=== PATIENT | female | born 1990 | race Caucasian/White ===

== ENCOUNTER 2017-06-04 11:17 | Emergency (ER) | payer MEDICAID ==
[2017-06-04 11:29] VITALS: BP 139/99
--- NOTE | 2017-06-04 11:51 | UC ---
Abdominal Pain Female HPI - HPI Summary HPI Summary: 24 WEEK PRESENTS WITH SEVERE RIGHT FLANK PAIN. SAW CLINICAL NUTRITIONIST YESTERDAY FOR ROUTINE VISIT AND C/O SUPRAPUBIC PRESSURE. WAS DX WITH UTI AND TX WITH MACROBID. THIS MORNING DEVELOPED SEVERE PAIN. NO FEVER OR NAUSEA. FEELS SIMILAR TO KIDNEY STONES SHE HAD IN THE PAST. STILL HAS URINARY FREQUENCY. NO DYSURIA. PT IN TEARS. NO CONTRACTIONS. NO BLEEDING. NO LOSS OF FLUID. - History of Current Complaint Chief Complaint: UCGU Stated Complaint: WITH BACK PAIN Time Seen by Provider: 06/04/17 11:35 Hx Obtained From: Patient Hx Last Menstrual Period: NOW Onset/Duration: Sudden Onset, Lasting Hours Timing: Constant Severity Initially: Moderate Severity Currently: Severe Pain Intensity: 10 Pain Scale Used: 0-10 Numeric Location: Other - LOWER ABDOMEN Radiates: Yes Radiates to: Flank - RIGHT Character: Sharp Aggravating Factor(s): Nothing Alleviating Factor(s): Nothing Associated Signs and Symptoms: Positive: Back Pain, Urinary Symptoms Allergies/Adverse Reactions: Allergies Allergy/AdvReac Type Severity Reaction Status Date / Time No Known Allergies Allergy Verified 12/15/16 08:46 Home Medications: Home Medications Acetaminophen [Tylenol] 650 mg PO Q6HR PRN 06/04/17 [History Confirmed 06/04/17] Nitrofurantoin Monohyd Macro [Macrobid] 100 mg PO BID 06/04/17 [History Confirmed 06/04/17] PMH/Surg Hx/FS Hx/Imm Hx GI/ History: Kidney Stones - LAST CASE AGE 16 - Surgical History Surgical History: Yes Surgery Procedure, Year, and Place: DENTAL SURGERY - Family History Family History: Reports that her sister had appendicitis but denies any other significant FHx of GI problems. - Social History Alcohol Use: None Substance Use Type: None Smoking Status (MU): Never Smoked Tobacco Review of Systems Constitutional: Negative Respiratory: Negative Cardiovascular: Negative Gastrointestinal: Abdominal Pain Genitourinary: Frequency All Other Systems Reviewed And Are Negative: Yes Physical Exam Triage Information Reviewed: Yes Appearance: Well-Nourished, Pain Distress - SEVERE Vital Signs: Initial Vital Signs Temp 98.8 F 06/04/17 11:24 Pulse 102 06/04/17 11:24 Resp 20 06/04/17 11:24 BP 139/99 06/04/17 11:24 Pulse Ox 99 06/04/17 11:24 Vital Signs Reviewed: Yes Eyes: Positive: Conjunctiva Clear ENT: Positive: Hearing grossly normal Neck: Positive: Supple Respiratory: Positive: No respiratory distress, No accessory muscle use Cardiovascular: Positive: Tachycardia Abdomen Description: Positive: Soft, CVA Tenderness (R), Other: - GRAVID. Negative: CVA Tenderness (L) Musculoskeletal: Positive: No Edema Neurological: Positive: Alert Psychological: Positive: Age Appropriate Behavior Skin: Negative: rashes Abd Pain Female Course/Dx - Course Course Of Treatment: TO [facility] BY PRIVATE CAR - Differential Dx/Diagnosis Provider Diagnoses: RIGHT FLANK PAIN Discharge - Discharge Plan Condition: Stable Disposition: OTHER Discharge Disposition Comment: TO [facility] BY PRIVATE CAR Patient Education Materials: Flank Pain (ED) Referrals: [facility] [Provider Group] Additional Instructions: GO DIRECTLY TO [facility] FROM HERE FOR FURTHER EVALUATION.
== END 2017-06-04 11:47 ==
LOC: UCEAST 11:17
DX: O26.892 Other specified pregnancy related conditions, second trimester (principal); Z3A.24 24 weeks gestation of pregnancy; R10.9 Unspecified abdominal pain
CPT/HCPCS: 99211; G0463

== ENCOUNTER 2017-06-04 12:23 | Emergency (ER) | payer MEDICAID ==
[2017-06-04] MEDS ORDERED: Morphine INJ* 4 MG/ML 1 ML CARPUJECT IV ONE ×2 (14:09→18:11)
[2017-06-04 14:18] LABS: Hematocrit 36 % (35-47); Hemoglobin 12.2 g/dl (12.0-16.0); Mean Corpuscular HGB Conc 34 g/dl (31-36); Mean Corpuscular Hemoglobin 30 pg (27-31); Mean Corpuscular Volume 89 fL (80-97); Mean Platelet Volume 9 um3 (7.4-10.4); Red Blood Count 4.09 10^6/ul (4.0-5.4); Red Cell Distribution Width 14 % (10.5-15); White Blood Count 11.7 10^3/ul (3.5-10.8)
[2017-06-04] MEDS ORDERED: NS 0.9% 1000 ML* 1,000 ML BOLUS SCH (14:30)
[2017-06-04 14:33] LABS: Albumin 3.6 g/dL (3.2-5.2); BUN/Creatinine Ratio 16.4 (8-20); Calcium 9.2 mg/dL (8.6-10.3); EGFR African American 136.8 (>60); EGFR Non-African American 106.4 (>60); Globulin 3.6 g/dL (2-4); Potassium 3.9 mmol/L (3.5-5.0); Total Bilirubin 0.3 mg/dL (0.2-1.0); Total Protein 7.2 g/dL (6.4-8.9)
--- NOTE | 2017-06-04 15:31 | RAD ---
HISTORY: , pain, UTI, hasn't felt motion. The gestational age by outside ultrasound is: 24 weeks, 5 days COMPARISONS: None available at the time of dictation. TECHNIQUE: Multiple transverse and longitudinal ultrasound images were obtained of the gravid uterus using Grayscale, color Doppler, and M-mode Doppler imaging. FINDINGS: /PLACENTAL EVALUATION: Number of fetuses: 1 Presentation: Cephalic cardiac activity: 146 bpm Gross motion: Observed Placenta position: Anterior Amniotic fluid volume: Normal BIOMETRY: Biparietal diameter: 6.6 cm 26 weeks, 4 days Head circumference: 23.8 cm 25 weeks, 6 days Abdominal circumference: 20 cm 24 weeks, 5 days Femur length: 4.7 cm 25 weeks, 4 days HC/AC: 1.19 Estimated weight: 780 grams, +/- 114 grams GESTATIONAL AGE: The composite gestational age is: 25 weeks, 5 days. The MARK is: September 12, 2017. This is concordant with the age by previous ultrasound. ANATOMY: cranium: Not evaluated ventricles: Not evaluated choroid plexus: Not evaluated cerebellum: Not evaluated posterior fossa: Not evaluated face/orbits/lips: Not evaluated spine: Not evaluated heart: Normal 4 chamber diaphragm: Not evaluated stomach: Within normal limits kidneys: Within normal limits bladder: Within normal limits cord: Not evaluated CERVIX: The cervix is long and closed, without funneling.. The cervix measures 3.7 cm. OTHER: None IMPRESSION: SINGLE LIVE INTRAUTERINE GESTATION AT 25 WEEKS AND 5 DAYS BY COMPOSITE GESTATIONAL AGE
--- NOTE | 2017-06-04 15:31 | RAD ---
Indication: RIGHT flank pain. History of kidney stones. Comparison: No relevant prior exams available on the [facility] PACS for comparison. Technique: Ultrasound of the RIGHT kidney. Report: 12.0 x 5.7 x 5.9 cm RIGHT kidney. Normal renal cortical echogenicity. Mild LV caliectasis. No conspicuous stones. Incidental 1.1 cm hyperechoic subcapsular lesion at the interface of the RIGHT kidney and RIGHT posterior hepatic segment which may represent a benign renal angiomyolipoma or benign intrahepatic hemangioma. Negative for perinephric fluid. Limited images of the urinary bladder documented bilateral ureteral jets. IMPRESSION: 1. Mild RIGHT hydronephrosis. RIGHT ureteral jet documented at the urinary bladder grossly symmetric with the LEFT ureteral jet. 2. No visualized urolithiasis. 3. Incidental 1.1 cm hyperechoic subcapsular lesion at the interface of the RIGHT kidney and RIGHT posterior hepatic segment which may represent a benign renal angiomyolipoma or benign intrahepatic hemangioma. Low suspicion finding based on small size.
[2017-06-04 15:42] LABS: Urine Bacteria Absent (Absent); Urine Bilirubin Negative (Negative); Urine Glucose Negative (Negative); Urine Nitrite Negative (Negative)
[2017-06-04 18:54] VITALS: BP 148/78
--- NOTE | 2017-06-04 22:40 | ED ---
Bernard Campbell Tiffany, scribed for Prema Phillips MD on 06/04/17 at 1754 . - HPI Summary HPI Summary: This patient is a 26 year old F referred from [facility] to [facility] accompanied by her sister and her baby's father with a chief complaint of lower back pain since this morning. The patient rates the pain 10/10 in severity. Symptoms aggravated by nothing. Symptoms alleviated by nothing. Patient denies nausea, vomiting, and bloody urine. The patient is 24 weeks . She was diagnosed with a UTI, for which she is taking medication. The patient is tearful. The patient states that she did not feel her baby move. Her department of mathematics chair, Vanessa Edward, recommended that patient present to ER to get an ultrasound. - History of Current Complaint Chief Complaint: EDOBProblems Stated Complaint: 24WKS PREG/KIDNEY PAIN Time Seen by Provider: 06/04/17 13:54 Hx Obtained From: Patient, Medical Records - [facility] Chief Complaint: Concern for Embryonic Dem Onset/Duration: Still Present Timing: Constant Severity: Severe Current Severity: Severe Pain Intensity: 10 Location of Pain: Other: - right flank pain Character: Sharp Aggravating Factors: Nothing Alleviating Factors: Nothing Associated Signs and Symptoms: Positive: Negative - nausea, vomiting, and bloody urine - Assessment Hx Now: Yes - Allergies/Home Medications Allergies/Adverse Reactions: Allergies Allergy/AdvReac Type Severity Reaction Status Date / Time No Known Allergies Allergy Verified 12/15/16 08:46 PMH/Surg Hx/FS Hx/Imm Hx Previously Healthy: No Endocrine/Hematology History: Denies: Hx Diabetes Cardiovascular History: Denies: Hx Hypertension, Hx Pacemaker/ICD GI History: Reports: Other GI Disorders - UTI, no hx kidney stones Denies: Hx Crohn's Disease History: Denies: Hx Renal Disease Sensory History: Denies: Hx Hearing Aid Psychiatric History: Denies: Hx Panic Disorder - Surgical History Surgery Procedure, Year, and Place: DENTAL SURGERY Infectious Disease History: No Infectious Disease History: Denies: Traveled Outside the [place] in Last 30 Days - Family History Known Family History: Positive: Other - Reports that her sister had appendicitis - Social History Lives: With Family Alcohol Use: None Hx Substance Use: No Substance Use Type: Reports: None Hx Tobacco Use: No Smoking Status (MU): Never Smoked Tobacco Review of Systems Constitutional: Negative Cardiovascular: Negative Respiratory: Negative Negative: Vomiting, Nausea Positive: other - NEGATIVE: bloody urine Positive: Other - right flank pain, bilat low back pain Skin: Negative Neurological: Negative Psychological: Normal All Other Systems Reviewed And Are Negative: Yes Physical Exam - Physical Exam Triage Information Reviewed: Yes Vital Signs Reviewed: Yes Appearance: Positive: Well-Nourished. Negative: Well-Appearing - Uncomfortable , Pain Distress Skin: Positive: Warm, Skin Color Reflects Adequate Perfusion Head/Face: Positive: Normal Head/Face Inspection Eyes: Positive: EOMI, Conjunctiva Clear ENT: Positive: Normal ENT inspection Neck: Positive: Supple Respiratory/Lung Sounds: Positive: Clear to Auscultation, Breath Sounds Present - Normal, Other - No respiratory distress Cardiovascular: Positive: Normal - Brisk capillary refill, RRR, Pulses are Symmetrical in both Upper and Lower Extremities. Negative: Murmur Abdomen Description: Positive: Nontender, No Organomegaly, Soft, CVA Tenderness (R), Other: - Fundus palpable 2cm above umbilicus Bowel Sounds: Positive: Present Musculoskeletal: Positive: Normal, Strength/ROM Intact Neurological: Positive: Sensory/Motor Intact, Alert, Oriented to Person Place, Time, Facial Symmetry, Speech Normal Psychiatric: Positive: Other - Tearful Diagnostics - Vital Signs Vital Signs Temp Pulse Resp BP Pulse Ox 06/04/17 12:39 97.3 F 90 17 149/97 98 - Laboratory Lab Results: Lab Results 06/04/17 06/04/17 06/04/17 Range/Units 14:05 14:05 14:05 WBC 11.7 H (3.5-10.8) 10^3/ul RBC 4.09 (4.0-5.4) 10^6/ul Hgb 12.2 (12.0-16.0) g/dl Hct 36 (35-47) % MCV 89 (80-97) fL MCH 30 (27-31) pg MCHC 34 (31-36) g/dl RDW 14 (10.5-15) % Plt Count 219 (150-450) 10^3/ul MPV 9 (7.4-10.4) um3 Neut % (Auto) 82.1 (38-83) % Lymph % (Auto) 11.3 L (25-47) % [place] % (Auto) 5.9 (1-9) % Eos % (Auto) 0.3 (0-6) % Baso % (Auto) 0.4 (0-2) % Absolute Neuts (auto) 9.6 H (1.5-7.7) 10^3/ul Absolute Lymphs (auto) 1.3 (1.0-4.8) 10^3/ul Absolute Monos (auto) 0.7 (0-0.8) 10^3/ul Absolute Eos (auto) 0 (0-0.6) 10^3/ul Absolute Basos (auto) 0 (0-0.2) 10^3/ul Absolute Nucleated RBC 0.01 10^3/ul Nucleated RBC % 0.1 Sodium 133 (133-145) mmol/L Potassium 3.9 (3.5-5.0) mmol/L Chloride 105 (101-111) mmol/L Carbon Dioxide 20 L (22-32) mmol/L Anion Gap 8 (2-11) mmol/L BUN 11 (6-24) mg/dL Creatinine 0.67 (0.51-0.95) mg/dL Est GFR ( Amer) 136.8 (>60) Est GFR (Non-Af Amer) 106.4 (>60) BUN/Creatinine Ratio 16.4 (8-20) Glucose 72 (70-100) mg/dL Lactic Acid 0.9 (0.5-2.0) mmol/L Calcium 9.2 (8.6-10.3) mg/dL Total Bilirubin 0.30 (0.2-1.0) mg/dL AST 23 (13-39) U/L ALT 16 (7-52) U/L Alkaline Phosphatase 55 (34-104) U/L Total Protein 7.2 (6.4-8.9) g/dL Albumin 3.6 (3.2-5.2) g/dL Globulin 3.6 (2-4) g/dL Albumin/Globulin Ratio 1.0 (1-3) Beta HCG, Quant 96279.00 mIU/mL Urine Color Urine Appearance Urine pH (5-9) Ur Specific [place] (1.010-1.030) Urine Protein (Negative) Urine Ketones (Negative) Urine Blood (Negative) Urine Nitrate (Negative) Urine Bilirubin (Negative) Urine Urobilinogen (Negative) Ur Leukocyte Esterase (Negative) Urine WBC (Auto) (Absent) Urine RBC (Auto) (Absent) Ur Squamous Epith Cells (Absent) Urine Bacteria (Absent) Urine Glucose (Negative) Urine Ascorbic Acid (Negative) Blood Type Antibody Screen 06/04/17 06/04/17 Range/Units 14:05 15:25 WBC (3.5-10.8) 10^3/ul RBC (4.0-5.4) 10^6/ul Hgb (12.0-16.0) g/dl Hct (35-47) % MCV (80-97) fL MCH (27-31) pg MCHC (31-36) g/dl RDW (10.5-15) % Plt Count (150-450) 10^3/ul MPV (7.4-10.4) um3 Neut % (Auto) (38-83) % Lymph % (Auto) (25-47) % [place] % (Auto) (1-9) % Eos % (Auto) (0-6) % Baso % (Auto) (0-2) % Absolute Neuts (auto) (1.5-7.7) 10^3/ul Absolute Lymphs (auto) (1.0-4.8) 10^3/ul Absolute Monos (auto) (0-0.8) 10^3/ul Absolute Eos (auto) (0-0.6) 10^3/ul Absolute Basos (auto) (0-0.2) 10^3/ul Absolute Nucleated RBC 10^3/ul Nucleated RBC % Sodium (133-145) mmol/L Potassium (3.5-5.0) mmol/L Chloride (101-111) mmol/L Carbon Dioxide (22-32) mmol/L Anion Gap (2-11) mmol/L BUN (6-24) mg/dL Creatinine (0.51-0.95) mg/dL Est GFR ( Amer) (>60) Est GFR (Non-Af Amer) (>60) BUN/Creatinine Ratio (8-20) Glucose (70-100) mg/dL Lactic Acid (0.5-2.0) mmol/L Calcium (8.6-10.3) mg/dL Total Bilirubin (0.2-1.0) mg/dL AST (13-39) U/L ALT (7-52) U/L Alkaline Phosphatase (34-104) U/L Total Protein (6.4-8.9) g/dL Albumin (3.2-5.2) g/dL Globulin (2-4) g/dL Albumin/Globulin Ratio (1-3) Beta HCG, Quant mIU/mL Urine Color Yellow Urine Appearance Cloudy Urine pH 6.0 (5-9) Ur Specific [place] 1.021 (1.010-1.030) Urine Protein Negative (Negative) Urine Ketones 1+ H (Negative) Urine Blood 3+ H (Negative) Urine Nitrate Negative (Negative) Urine Bilirubin Negative (Negative) Urine Urobilinogen Negative (Negative) Ur Leukocyte Esterase 1+ H (Negative) Urine WBC (Auto) Trace(0-5/hpf) (Absent) Urine RBC (Auto) 3+(>10/hpf) H (Absent) Ur Squamous Epith Cells Present H (Absent) Urine Bacteria Absent (Absent) Urine Glucose Negative (Negative) Urine Ascorbic Acid * H (Negative) Blood Type O Positive Antibody Screen Negative Result Diagrams: 06/04/17 14:05 06/04/17 14:05 Lab Statement: Any lab studies that have been ordered have been reviewed, and results considered in the medical decision making process. - Additional Comments Diagnostic Additional Comments: Renal US reveals, per radiologist, 1. Mild RIGHT hydronephrosis. RIGHT ureteral jet documented at the urinary bladder grossly symmetric with the LEFT ureteral jet. 2. No visualized urolithiasis. 3. Incidental 1.1 cm hyperechoic subcapsular lesion at the interface of the RIGHT kidney and RIGHT posterior hepatic segment which may represent a benign renal angiomyolipoma or benign intrahepatic hemangioma. Low suspicion finding based on small size. ED physician has reviewed this radiology report. US reveals, per radiologist, SINGLE LIVE INTRAUTERINE GESTATION AT 25 WEEKS AND 5 DAYS BY COMPOSITE GESTATIONAL AGE. ED physician has reviewed this radiology report. Re-Evaluation - Re-Evaluation First Eval Re-Evaluation Time: 16:54 Change: Improved Comment: Patient's pain is controlled. She is agreeable for D/C. Second Eval Re-Evaluation Time: 18:08 Change: Worse Comment: Patient's pain is starting to return and is rated 4/10. She requests morphine. She is still agreeable to discharge. Course/Dx - Course Course Of Treatment: Renal US reveals, per radiologist, 1. Mild RIGHT hydronephrosis. RIGHT ureteral jet documented at the urinary bladder grossly symmetric with the LEFT ureteral jet. 2. No visualized urolithiasis. 3. Incidental 1.1 cm hyperechoic subcapsular lesion at the interface of the RIGHT kidney and RIGHT posterior hepatic segment which may represent a benign renal angiomyolipoma or benign intrahepatic hemangioma. Low suspicion finding based on small size. US reveals, per radiologist, SINGLE LIVE INTRAUTERINE GESTATION AT 25 WEEKS AND 5 DAYS BY COMPOSITE GESTATIONAL AGE. Test results with no significant abnormalities. In the ED course the patient was given morphine. Pt expressed concern about taking narcotics while , agrees benefits greater than risks, and agrees to morphine. We discussed patient care with Dr. Perales (urology) who believes that the patient has mild hydronephrosis from with good jet. He advises that the bloody urine could be from or from UTI. He is willing to provide back up if the patient needs admission. He says that the patient could be managed outpatient and that the patient should get a repeated ultrasound in 3-4 months to follow up on the possible angiolipoma. At 16:52, Dr. Bacon (SECURITIES UNDERWRITER) says that the patient can be managed as an outpatient. Patient will be discharged and follow up from Dr. Bacon. The patient is agreeable with this plan. Assessment/Plan: High blood pressure noted. Pt medications reviewed this visit. - Differential Diagnosis/HQI/PQRI: Appendicitis, Cholecystitis, Cholelithiasis, Pre-term Labor, Renal Colic, UTI - Diagnoses Provider Diagnoses: , Hydronephrosis, Flank pain, UTI (urinary tract infection) - Provider Notifications Discussed Care Of Patient With: Felipe Perales Time Discussed With Above Provider: 16:16 Instructed by Provider To: Other - Dr. Perales (urology) believes that the patient has mild hydronephrosis from with good jet. He is willing to provide back up if the patient needs admission. He says that the patient could be managed outpatient and that the patient should get a repeated ultrasound in 3 -4 months to follow up possible angiolipoma. At 16:52, Dr. Bacon (SECURITIES UNDERWRITER) says that the patient can be managed as an outpatient. Discharge - Discharge Plan Condition: Stable Disposition: HOME Prescriptions: HYDROcodone/ACETAMIN 5-325 MG* [Goehner 5-325 TAB*] 1 tab PO Q6H PRN #20 tab MDD 4 PRN Reason: Pain Patient Education Materials: (ED), Flank Pain (ED), Hydronephrosis ( ED) Referrals: Kathryn Bacon MD [Medical Doctor] - 3 Days (if needed for worsening pain ) Additional Instructions: You were given morphine 4mg twice while in the ER, at 2pm and 6pm. You may continue to take hydrocodone with tylenol as directed as needed for severe pain. Dr. Bacon stated if the pain is much worse in the next 1-2 days that you may return to the ER for further evaluation. Also return to the ER if you develop new symptoms. The documentation as recorded by the Bernard bonner Tiffany accurately reflects the service I personally performed and the decisions made by me, Prema Phillips MD.
== END 2017-06-04 18:52 | disposition home or self-care (01) ==
LOC: ED 12:23
DX: O99.89 Other specified diseases and conditions complicating pregnancy, childbirth and the puerperium (principal); N13.30 Unspecified hydronephrosis; O26.832 Pregnancy related renal disease, second trimester; N28.9 Disorder of kidney and ureter, unspecified; Z3A.25 25 weeks gestation of pregnancy
CPT/HCPCS: 36415; 76775; 76815; 80053; 81003; 81015; 83605; 84702; 85025; 86850; 86900; 86901; 87086; 96374; 96376; 99283; J2270

== ENCOUNTER 2017-09-24 18:29 | Inpatient (IN) | payer MEDICAID ==
[~2017-09-24 18:29] MED LIST: Dinoprostone* 10 MG VAG.SUPP VAGINAL ONE
--- NOTE | 2017-09-24 19:27 | PN ---
L&D Outpatient: Visit - Reproductive Information Estimated Due Date: 09/19/17 Gestational Age: 40 Weeks and 5 Days : 1 - Reason for Visit Visit Reason: cervical ripening - Antepartal Records Antepartal Record: Reviewed, Complicated by: - hydronephrosis - Patient History Patient History Significant: Yes Patient History Significant For: pituitary microadenoma Kidney stones L&D Outpatient: ROS - Review of Systems Constitutional: Comfortable CV Complaint: No Respiratory: Shortness of Breath: No Gastrointestinal: No Nausea/Vomiting Genitourinary: No Leaking Fluid Musculoskeletal: Back Pain Movement: Normal L&D Outpatient: Exam Vitals - Most Recent: 99.2-90-18 127/63 - Cervical Exam Cervical Exam: 1cm, 80%, vtx -2 - Abdominal Exam Abdomen Exam: Non-Tender - Membranes Membrane Status: Intact - Ultrasound/Biophysical Profile Ultrasound Status: Not Done L&D Outpatient: EFM - External Monitor Findings Baseline Heart Rate: 140 External Monitor Findings: Accelerations Present, No Pattern of Variable or Late Decelerations, Variability Moderate - category 1 External Monitor Findings Comment: category 1 L&D Outpatient: Asses/Plan Assessment: Primip at 40 w 5 day with unripe cervix Plan: After discussion with pt, Cervidil placed in vagina at 1920 Will monitor per protocol Re evaluate in 12 hours if no labor by then
[2017-09-25] MEDS ORDERED: Nalbuphine* 20 MG/ML 1 ML VIAL IV ONE (01:24)
[2017-09-25] MEDS ORDERED: Promethazine INJ(RESTRICTED)* 25 MG/ML 1 ML VIAL IV ONE (01:24)
[2017-09-25] MEDS ORDERED: Promethazine INJ(RESTRICTED)* 25 MG/ML 1 ML VIAL ONE (01:37)
[2017-09-25] MEDS ORDERED: Nalbuphine* 20 MG/ML 1 ML VIAL ONE (01:37)
[2017-09-25 01:45] LABS: Hematocrit 37 % (35-47); Hemoglobin 12.6 g/dl (12.0-16.0); Mean Corpuscular HGB Conc 34 g/dl (31-36); Mean Corpuscular Hemoglobin 30 pg (27-31); Mean Corpuscular Volume 88 fL (80-97); Mean Platelet Volume 9.3 um3 (7.4-10.4); Platelet Count 217 10^3/ul (150-450); Red Cell Distribution Width 14 % (10.5-15); White Blood Count 9.9 10^3/ul (3.5-10.8)
--- NOTE | 2017-09-25 01:51 | PN ---
Progress Note - Progress Note Date of Service: 09/25/17 - labor check Note: Uncomfortable, cramps every 2-3 minutes Cervix 2-3 cm, 90%, vtx -1 Cervidil removed at 0105 IMP: Early labor Will admit, pitocin augmentation prn
--- NOTE | 2017-09-25 01:57 | HP ---
General Information - General Information Maternal Age: 26 Grav: 1 Para: 0 SAB: 0 IEA: 0 Estimated Due Date: 09/19/17 Determined By: LMP Gestational Age in Weeks and Days: 40 Weeks and 5 Days Maternal Blood Type and Rh: O Positive - Results this Serology/RPR Result: Non-Reactive Rubella Result: Immune HBsAg Result: Negative HIV Result: Negative GBS Culture Result: Negative Past Medical History Past Medical History Comment: pitocin microadenoma kidney stones Pertinent Past Surgical History: None Pertinent Family History: Non-Contributory - Antepartal Records Antepartal Records: Reviewed, Complicated by: - hydronephrosis Review of Systems Constitutional: Uncomfortable CV Complaint: No Respiratory: Shortness of Breath: No Gastrointestinal: No Nausea/Vomiting Genitourinary: No Leaking Fluid Musculoskeletal: Back Pain, Contractions Neurological: No Headache Movement: Normal Exam Allergies/Adverse Reactions: Allergies No Known Allergies Allergy (Verified 08/11/17 13:50) Vital Signs 09/24/17 19:39 Temperature 99.1 F Pulse Rate 90 Respiratory 18 Rate Blood Pressure 127/63 (mmHg) O2 Sat by Pulse 100 Oximetry Lab Values - Entire Visit: Laboratory Tests 09/25/17 01:30 WBC 9.9 RBC 4.20 Hgb 12.6 Hct 37 MCV 88 MCH 30 MCHC 34 RDW 14 Plt Count 217 MPV 9.3 - Measurements Height: 5 ft 3 in Weight: 227 lb Weight in lbs: 227 Body Mass Index (BMI): 40.1 Pre- Weight: 225 lb Weight Gained This : 2 lbs and 0 ozs - Exam Breast: - - soft, no masses CVA: No CVA Tenderness Extremities: Edema Heart: Normal Rhythm/Heart Sounds HEENT: No Significant Findings Lungs: Clear Bilaterally Reflexes: DTR 2+ Thyroid: No Thyromegaly - Cervical Exam 2-3, 90%, vtx -1 - Abdominal Exam Abdomen Exam: Fundal Height Consistent with Dates Abdomen Exam Comment: EFW 8.5 lbs - Membranes Membrane Status: Intact - Ultrasound/Biophysical Profile Ultrasound Status: Not Done EFM Findings - External Monitor Findings Baseline Heart Rate: 120 External Monitor Findings: Accelerations Present, No Pattern of Variable or Late Decelerations, Variability Moderate External Monitor Findings Comment: category 1 Contractions: Regular, Moderate, < 45 Seconds, 45-90 Seconds Contraction Frequency: every 2-3 Assessment/Plan - Reason for Visit Reason for Visit: cervical ripening, now in early labor - Obstetrical Risk Factors Obstetrical Risk Factors: Post-Dates, Obesity - Plan Plan: Early Labor Plan Comment: will admit, medicate prn Pitocin augmentation prn - Date/Time of Admission Date of Admission: 09/25/17 Time of Admission: 01:10
[2017-09-25] MEDS ORDERED: OBEPIDURAL* 250 ML EPIDURAL ONE (02:15)
[2017-09-25] MEDS ORDERED: Phenylephrine IV* 40 MCG/ML 10 ML SYRINGE ONE (02:58)
[2017-09-25] MEDS ORDERED: Phenylephrine IV* 40 MCG/ML 10 ML SYRINGE IV PUSH PRN ×2 (03:45)
[2017-09-25] MEDS ORDERED: Sodium Citrate/Citric Acid* 15 ML UDC PO PRN (03:45)
[2017-09-25] MEDS ORDERED: Famotidine TAB* 20 MG PO PRN (03:45)
[2017-09-25] MEDS ORDERED: EPHEDrine (Pressors)* 50 MG/ML VIAL IV PUSH PRN ×2 (03:45)
[2017-09-25] MEDS ORDERED: OBEPIDURAL* 250 ML EPIDURAL SCH (04:00)
[2017-09-25] MEDS ORDERED: Oxytocin in LR* 20 UNITS/1,000 ML BAG IVPB ONE (10:14)
[2017-09-25] MEDS ORDERED: Oxytocin in LR* 20 UNITS/1,000 ML BAG IVPB SCH ×2 (11:00→20:00)
[2017-09-25] MEDS ORDERED: Misoprostol TAB* 200 MCG ONE (19:12)
[2017-09-25] MEDS ORDERED: Misoprostol TAB* 200 MCG PR ONE (19:17)
[2017-09-25] MEDS ORDERED: Witch Hazel PAD* JAR TOPICAL PRN (19:17)
[2017-09-25] MEDS ORDERED: Glycerin ADULT SUPP PR PRN (19:17)
[2017-09-25] MEDS ORDERED: Dibucaine 1% 28.35 GM TUBE PR PRN (19:17)
[2017-09-25] MEDS ORDERED: Acetaminophen TAB* 325 MG PO PRN (19:17)
[2017-09-25] MEDS ORDERED: Simethicone TAB* 80 MG TAB.CHEW PO SCH (21:00)
[2017-09-25] MEDS: Docusate CAP* 100 MG PO SCH (21:49)
[2017-09-25] MEDS: Ibuprofen TAB* 600 MG PO PRN (21:49)
[2017-09-25] MEDS: oxyCODONE/Acetamin 5/325 MG* TAB PO PRN (22:18)
[2017-09-26 06:55] LABS: ABS Basophils 0 10^3/ul (0-0.2); ABS Eosinophils 0.1 10^3/ul (0-0.6); ABS Lymphocytes 2.3 10^3/ul (1.0-4.8); ABS Monocytes 1.5 10^3/ul (0-0.8); ABS Neutrophils 12.1 10^3/ul (1.5-7.7); ABS Nucleated RBC 0 10^3/ul; Eosinophil % 0.8 % (0-6); Hematocrit 30 % (35-47); Hemoglobin 10.4 g/dl (12.0-16.0); Lymphocyte % 14.4 % (25-47); Mean Corpuscular HGB Conc 34 g/dl (31-36); Mean Corpuscular Hemoglobin 30 pg (27-31); Mean Corpuscular Volume 87 fL (80-97); Mean Platelet Volume 9.4 um3 (7.4-10.4); Nucleated Red Blood Cells % 0; Platelet Count 168 10^3/ul (150-450); Red Blood Count 3.46 10^6/ul (4.0-5.4); Red Cell Distribution Width 14 % (10.5-15)
[2017-09-26] MEDS: Ibuprofen TAB* 600 MG PO PRN ×3 (08:11→23:34)
[2017-09-26] MEDS: Docusate CAP* 100 MG PO SCH ×3 (08:11→20:33)
[2017-09-26] MEDS ORDERED: Ferrous Gluconate TAB* 324 MG TAB PO SCH (09:00)
[2017-09-26] MEDS: oxyCODONE/Acetamin 5/325 MG* TAB PO PRN ×2 (12:56→21:50)
[2017-09-27 07:54] VITALS: BP 107/57
[2017-09-27] MEDS: Docusate CAP* 100 MG PO SCH (08:41)
[2017-09-27] MEDS: Ibuprofen TAB* 600 MG PO PRN (11:24)
== END 2017-09-27 14:13 | disposition home or self-care (01) | DRG 560 ==
LOC: MCHOBOUT 18:29 → MCHOB 09-25 01:12
PROVIDERS: ADMIT Midwife; ATTEND Midwife
PROC: 10E0XZZ Delivery of Products of Conception, External Approach (ICD-10-PCS; principal; 2017-09-25)
PROC: 3E033VJ Introduction of Other Hormone into Peripheral Vein, Percutaneous Approach (ICD-10-PCS; 2017-09-25)
PROC: 10907ZC Drainage of Amniotic Fluid, Therapeutic from Products of Conception, Via Natural or Artificial Opening (ICD-10-PCS; 2017-09-25)
PROC: 0HQ9XZZ Repair Perineum Skin, External Approach (ICD-10-PCS; 2017-09-25)
DX: O48.0 Post-term pregnancy (principal); Z68.41 Body mass index [BMI] 40.0-44.9, adult; O70.0 First degree perineal laceration during delivery; O77.0 Labor and delivery complicated by meconium in amniotic fluid; O99.214 Obesity complicating childbirth; E66.01 Morbid (severe) obesity due to excess calories; Z3A.40 40 weeks gestation of pregnancy; Z37.0 Single live birth
CPT/HCPCS: 36415; 59200; 85025; 85027; 86850; 86900; 86901; A9270-GY; J2300; J2550